=== PATIENT | female | born 1980 | race Caucasian/White ===

== ENCOUNTER 2019-03-22 22:07 | Emergency (ER) | payer BC ==
[~2019-03-22] VITALS: Ht 165.1 cm; Wt 61.7 kg
[2019-03-22 22:07] VITALS: BP_SYST 155
[2019-03-22 22:54] VITALS: BP_SYST 132
== END 2019-03-22 22:54 | disposition home or self-care (01) ==
LOC: SED 22:07
DX: L03.314 Cellulitis of groin (principal); R21 Rash and other nonspecific skin eruption; R03.0 Elevated blood-pressure reading, without diagnosis of hypertension; Z90.49 Acquired absence of other specified parts of digestive tract
CPT/HCPCS: 81002; 81025; 99283